=== PATIENT | male | born 1940 | race Caucasian/White ===

== ENCOUNTER 2018-03-04 16:57 | Emergency (ER) | payer MEDICARE, OTHER ==
--- NOTE | 2018-03-04 17:11 | ER Report ---
History and Physical Time Seen By MD: 17:10 Hx. of Stated Complaint: chest pain started 30min HPI/ROS CHIEF COMPLAINT: chest pain HISTORY OF PRESENT ILLNESS: This is a 78 year old male. He is here in [place] from [place] visiting his daughter. Started having central substernal chest pain about 30 minutes ago. It does not radiate. No shortness of breath. No nausea. Nothing makes it worse or better. Came on while at rest. Severe and steady. No fevers or cough. Has not been ill recently. Normal bowel and bladder function. No history of heart problems. Allergies: Coded Allergies: No Known Drug Allergies (Unverified , 03/04/18) Home Meds Reported Medications Alprazolam (XANAX) 0.5 Mg Tablet, 1 TAB PO TID, TAB 03/04/18 Omeprazole (OMEPRAZOLE) 20 Mg Tablet.dr, 20 MG PO BID, TAB 03/04/18 Gabapentin (GABAPENTIN) 300 Mg Capsule, 300 MG PO TID, CAPSULE 03/04/18 Paroxetine Hcl (PAXIL) 20 Mg Tablet, 40 MG PO QDAY, TAB 03/04/18 Lovastatin (LOVASTATIN) 20 Mg Tablet, 20 MG PO QDAY 03/04/18 Reviewed Nurses Notes: Yes Constitutional Vital Sign - Last 24 Hours 03/04/18 03/04/18 03/04/18 03/04/18 16:57 17:01 17:02 17:10 Temp 97.6 Pulse ??? 94 Resp 18 B/P (MAP) 144/82 (102) 144/82 128/74 (92) Pulse Ox 94 O2 Delivery Room Air 03/04/18 03/04/18 03/04/18 03/04/18 17:20 17:27 17:30 17:40 Pulse 54 Resp 12 B/P (MAP) 118/78 (91) 120/75 (90) 120/79 (93) Pulse Ox 94 03/04/18 03/04/18 03/04/18 03/04/18 17:50 18:00 18:10 18:20 B/P (MAP) 123/70 (87) ???/??? (1665) 132/84 (100) 127/75 (92) 03/04/18 03/04/18 03/04/18 03/04/18 18:27 18:30 18:40 18:50 Pulse 47 Resp 12 B/P (MAP) 135/68 (90) 95/69 (78) 106/69 (81) Pulse Ox 94 03/04/18 03/04/18 03/04/18 03/04/18 18:57 18:57 19:00 19:10 Pulse 42 42 Resp 16 16 B/P (MAP) 112/63 (79) 104/69 (81) Pulse Ox 94 94 03/04/18 03/04/18 03/04/18 03/04/18 19:15 19:20 19:30 19:40 Pulse 41 Resp 11 B/P (MAP) 110/65 (80) 118/71 (87) 130/73 (92) Pulse Ox 92 03/04/18 03/04/18 03/04/18 03/04/18 19:45 19:50 20:00 20:10 Pulse ??? 46 Resp 15 B/P (MAP) 136/76 (96) 138/80 (99) 132/73 (92) Pulse Ox 94 03/04/18 03/04/18 03/04/18 03/04/18 20:15 20:30 20:42 20:45 Pulse 44 45 46 Resp 11 9 6 B/P (MAP) ???/??? (1665) 122/66 (84) Pulse Ox 96 03/04/18 03/04/18 03/04/18 20:50 21:00 21:04 Pulse 48 43 Resp 10 5 B/P (MAP) 143/88 (106) 141/81 (101) Pulse Ox 96 94 Intake and Output 03/04/18 03/04/18 03/05/18 15:00 23:00 07:00 Intake Total 1000 ml Balance 1000 ml Physical Exam General Appearance: The patient is alert. No acute distress. Eyes: Pupils are equal, round. No pallor, injection or icterus. ENT: Mucous membranes are moist. Normal oral mucosa. Posterior oropharynx is normal. Neck: Supple and non tender. No lymphadenopathy. Respiratory: Lungs are clear to auscultation. Cardiovascular: Regular rate and rhythm. No murmurs, gallops or rubs. Normal capillary refill. Gastrointestinal: Abdomen is soft and non tender. Nondistended. Normal active bowel sounds. Neurological: Alert and oriented x3. Skin: Warm and dry. No rashes. Musculoskeletal: Extremities are nontender. No tenderness in palpation of the back and spine. DIFFERENTIAL DIAGNOSIS: After history and physical exam, differential diagnosis was considered for chest pain including but not limited to myocardial ischemia, pericarditis pulmonary embolus, chest wall pain, pleural inflammation and pulmonary infectious causes. Medical Decision Making Data Points Result Diagram: 03/04/18 1715 03/04/18 1715 Laboratory Hematology Test 03/04/18 17:15 03/04/18 20:22 Red Blood Count 4.62 M/uL (4.00-5.60) Mean Corpuscular Volume 97.3 fL (80.0-96.0) Mean Corpuscular Hemoglobin 34.3 pg (26.0-33.0) Mean Corpuscular Hemoglobin Concent 35.3 g/dL (32.0-36.0) Red Cell Distribution Width 15.4 % (11.5-14.5) Mean Platelet Volume 9.3 fL (7.2-11.1) Neutrophils (%) (Auto) 64.3 % (39.4-72.5) Lymphocytes (%) (Auto) 26.8 % (17.6-49.6) Monocytes (%) (Auto) 6.6 % (4.1-12.4) Eosinophils (%) (Auto) 1.6 % (0.4-6.7) Basophils (%) (Auto) 0.7 % (0.3-1.4) Nucleated RBC Relative Count (auto) 0.1 /100WBC Neutrophils # (Auto) 4.7 K/uL (2.0-7.4) Lymphocytes # (Auto) 2.0 K/uL (1.3-3.6) Monocytes # (Auto) 0.5 K/uL (0.3-1.0) Eosinophils # (Auto) 0.1 K/uL (0.0-0.5) Basophils # (Auto) 0.1 K/uL (0.0-0.1) Nucleated RBC Absolute Count (auto) 0.00 K/uL D-Dimer Quantitative (PE/DVT) 0.29 ug/ml (0-0.50) Sodium Level 141 mmol/L (137-145) Potassium Level 3.6 mmol/L (3.5-5.0) Chloride Level 105 mmol/L (98-107) Carbon Dioxide Level 27 mmol/L (22-30) Blood Urea Nitrogen 15 mg/dl (9-21) Creatinine 0.90 mg/dl (0.66-1.25) Glomerular Filtration Rate Calc > 60.0 Random Glucose 94 mg/dl (75-110) Calcium Level 9.4 mg/dl (8.4-10.2) Total Bilirubin 0.7 mg/dl (0.2-1.3) Aspartate Amino Transf (AST/SGOT) 71 U/L (0-35) Alanine Aminotransferase (ALT/SGPT) 104 U/L (0-56) Alkaline Phosphatase 58 U/L (0-126) B-Type Natriuretic Peptide 16 pg/ml (0-100) Total Protein 6.9 g/dl (6.3-8.2) Albumin 4.2 g/dl (3.5-5.0) Troponin I < 0.012 ng/ml Chemistry Test 03/04/18 17:15 03/04/18 20:22 White Blood Count 7.3 k/uL (4.5-11.0) Red Blood Count 4.62 M/uL (4.00-5.60) Hemoglobin 15.8 g/dL (14.0-18.0) Hematocrit 44.9 % (42.0-52.0) Mean Corpuscular Volume 97.3 fL (80.0-96.0) Mean Corpuscular Hemoglobin 34.3 pg (26.0-33.0) Mean Corpuscular Hemoglobin Concent 35.3 g/dL (32.0-36.0) Red Cell Distribution Width 15.4 % (11.5-14.5) Platelet Count 177 K/uL (150-450) Mean Platelet Volume 9.3 fL (7.2-11.1) Neutrophils (%) (Auto) 64.3 % (39.4-72.5) Lymphocytes (%) (Auto) 26.8 % (17.6-49.6) Monocytes (%) (Auto) 6.6 % (4.1-12.4) Eosinophils (%) (Auto) 1.6 % (0.4-6.7) Basophils (%) (Auto) 0.7 % (0.3-1.4) Nucleated RBC Relative Count (auto) 0.1 /100WBC Neutrophils # (Auto) 4.7 K/uL (2.0-7.4) Lymphocytes # (Auto) 2.0 K/uL (1.3-3.6) Monocytes # (Auto) 0.5 K/uL (0.3-1.0) Eosinophils # (Auto) 0.1 K/uL (0.0-0.5) Basophils # (Auto) 0.1 K/uL (0.0-0.1) Nucleated RBC Absolute Count (auto) 0.00 K/uL D-Dimer Quantitative (PE/DVT) 0.29 ug/ml (0-0.50) Glomerular Filtration Rate Calc > 60.0 Calcium Level 9.4 mg/dl (8.4-10.2) Total Bilirubin 0.7 mg/dl (0.2-1.3) Aspartate Amino Transf (AST/SGOT) 71 U/L (0-35) Alanine Aminotransferase (ALT/SGPT) 104 U/L (0-56) Alkaline Phosphatase 58 U/L (0-126) B-Type Natriuretic Peptide 16 pg/ml (0-100) Total Protein 6.9 g/dl (6.3-8.2) Albumin 4.2 g/dl (3.5-5.0) Troponin I < 0.012 ng/ml Coagulation Test 03/04/18 17:15 D-Dimer Quantitative (PE/DVT) 0.29 ug/ml EKG/Imaging EKG Interpretation 12 lead EKG: Rhythm: Sinus bradycardia, rate 54 [place]: Left axis deviation QRS: Minimal criteria for LVH ST segments: No ST elevation or depression, nonspecific T-wave flattening Imaging Examination: CHEST PA AND LAT Comparison: None. History: Chest pain. Smoker. Findings: Mild hyperexpansion. Mild chronic appearing interstitial thickening with subtle peripheral reticular markings most notably in the anterior right upper lobe. No consolidation, nodule, or definite evidence of acute peribronchial inflammation. No pneumothorax, edema, or effusion. Cardiac and hilar contour size is within normal limits. Multilevel anterior compression at the thoracolumbar junction. IMPRESSION: 1. Chronic appearing lung disease with no definite evidence of acute cardiopulmonary disease. 2. Anterior vertebral body compression at the thoracolumbar junction is favored to be chronic although correlation with any clinical history of acute pain is recommended. Report Dictated By: Ronald Gonzalez MD at 03/04/2018 6:18 PM ED Course/Re-evaluation Clinical Indication for ER IV: IV Access ED Course Initial evaluation shows bradycardia which is asymptomatic. Chest pain is much less than when he came in. We did give him aspirin and then a sublingual nitroglycerin. This eased the pain a little bit but did not take it away. 3 hours later, repeated EKG and troponin which were again negative. No sign of blood clot based on negative d dimer. Discussed results with the patient and his daughter. Recommended follow-up with his primary care provider and [place] on Tuesday as planned. Decision to Disposition Date: Mar 04, 2018 Decision to Disposition Time: 20:58 Depart Departure Latest Vital Signs Vital Signs Date Time Temp Pulse Resp B/P (MAP) Pulse Ox O2 Delivery O2 Flow Rate FiO2 03/04/18 21:04 43 5 94 03/04/18 21:00 141/81 (101) 03/04/18 17:02 97.6 Room Air Impression: Primary Impression: Chest pain Condition: Improved Disposition: HOME OR SELF-CARE Patient Instructions: Chest Pain (ED) Additional Instructions: Light to moderate activity over the weekend. No heavy activity. Follow-up with your regular doctor as planned on Tuesday. No changes in medications. Problem Qualifiers Primary Impression: Chest pain Chest pain type: unspecified Qualified Codes: R07.9 - Chest pain, unspecified CATIE LAI MD Mar 04, 2018 17:11
[2018-03-04] MEDS ORDERED: LOVA20TA99 PO (17:16)
[2018-03-04] MEDS ORDERED: OMEP-137 PO (17:16)
[2018-03-04] MEDS ORDERED: PARO-243 PO (17:16)
[2018-03-04] MEDS ORDERED: GABA-549 PO (17:16)
[2018-03-04] MEDS ORDERED: NS(*) 0.9% 1000 ML BAG 1,000 ML IV ONE (17:21)
[2018-03-04] MEDS ORDERED: ASPIRIN 81 MG CHEW PO ONE (17:25)
[2018-03-04 17:31] LABS: PLATELET COUNT, AUTOMATED 177 K/uL (150-450)
[2018-03-04] MEDS ORDERED: ALPR-429 PO (17:36)
[2018-03-04] MEDS ORDERED: NITROGLYCERIN 0.4 MG SUBL SL ONE (18:20)
--- NOTE | 2018-03-04 18:20 | EKG ---
FACILITY: [facility] PATIENT NAME: MARC TIMMONS : [id number] MR: [id number] V: [id number] EXAM DATE: ORDERING PHYSICIAN: CATIE LAI TECHNOLOGIST: Test Reason : Blood Pressure : / mmHG Vent. Rate : 054 BPM Atrial Rate : 054 BPM P-R Int : 186 ms QRS Dur : 110 ms QT Int : 472 ms P-R-T Axes : 056 -37 000 degrees QTc Int : 447 ms Sinus bradycardia Left axis deviation Minimal voltage criteria for LVH, may be normal variant Interventricular conduction delay. No previous ECGs available Confirmed by CURLY CRAVEN ([id number]) on 03/04/2018 9:54:20 PM Referred By: Confirmed By:CURLY CRAVEN
--- NOTE | 2018-03-04 18:26 | RADIOLOGY IMAGING REPORT ---
[facility] PATIENT NAME: Jonathon Whitfield : 1940 MR: [id number] V: [id number] EXAM DATE: ORDERING PHYSICIAN: CATIE LAI TECHNOLOGIST: Location: [facility] Patient: Jonathon Whitfield : 1940 Visit/Account:[id number] Date of Sevice: 03/04/2018 Examination: CHEST PA AND LAT Comparison: None. History: Chest pain. Smoker. Findings: Mild hyperexpansion. Mild chronic appearing interstitial thickening with subtle peripheral reticular markings most notably in the anterior right upper lobe. No consolidation, nodule, or defini te evidence of acute peribronchial inflammation. No pneumothorax, edema, or effusion. Cardiac and hil ar contour size is within normal limits. Multilevel anterior compression at the thoracolumbar junctio n. IMPRESSION: 1. Chronic appearing lung disease with no definite evidence of acute cardiopulmonary disease. 2. Anterior vertebral body compression at the thoracolumbar junction is favored to be chronic althoug h correlation with any clinical history of acute pain is recommended. Report Dictated By: Ronald Gonzalez MD at 03/04/2018 6:18 PM Report E-Signed By: Ronald Gonzalez MD at 03/04/2018 6:21 PM WSN:[id number]
[2018-03-04 21:00] VITALS: BP 141/81
--- NOTE | 2018-03-04 22:38 | EKG ---
FACILITY: [facility] PATIENT NAME: MARC TIMMONS : [id number] MR: [id number] V: [id number] EXAM DATE: ORDERING PHYSICIAN: CATIE LAI TECHNOLOGIST: PAO Test Reason : CHEST PAIN Blood Pressure : / mmHG Vent. Rate : 045 BPM Atrial Rate : 045 BPM P-R Int : 208 ms QRS Dur : 100 ms QT Int : 514 ms P-R-T Axes : 050 -28 -28 degrees QTc Int : 444 ms Marked sinus bradycardia T changes in II, III, AVF, V5-6 are non-specific but cannot rule out ischemia or electrolyte abnormal ity. Changes are more apparent in II, V 5-6 than on previous ECG. When compared with ECG of 04-MAR-2018 17:05, As above. Confirmed by CURLY CRAVEN ([id number]) on 03/05/2018 6:03:51 AM Referred By: Confirmed By:CURLY CRAVEN
== END 2018-03-04 21:11 | disposition home or self-care (01) ==
LOC: ER 17:38
DX: R07.9 Chest pain, unspecified (principal); Z79.899 Other long term (current) drug therapy
CPT/HCPCS: 36415; 71046; 83880; 84484; 85025; 85379; 93005; 96360; 99284; A9270; J7030; 82040; 82247; 82310; 82374; 82435; 82565; 82947; 84075; 84132; 84155; 84295; 84450; 84460; 84520; 99285